=== PATIENT | female | born 1990 | race Caucasian/White ===

== ENCOUNTER 2020-01-19 12:46 | Emergency (ER) | payer MEDICAID, SELFPAY ==
[~2020-01-19] VITALS: Ht 162.6 cm; Wt 104.8 kg
[2020-01-19 12:46] VITALS: BP 145/91
--- NOTE | 2020-01-19 12:46 | NUR ---
PT LEFT OUT IN TENT FOR COVID PRECAUTIONS.
--- NOTE | 2020-01-19 12:50 | NUR ---
29/F c/o headache x2 days. Patient reports she was exposed to a family member that was positive for COVID and found out results yesterday. Patient reports she was exposed to family member for 3 days prior to finding out the exposure. Pt denies taking any medications at home for pain. VSS at this time. Pt left in [facility] tent for isolation.
--- NOTE | 2020-01-19 13:45 | NUR ---
COVID SWAB COLLECTED FROM PT
[2020-01-19 14:36] VITALS: BP 145/90
--- NOTE | 2020-01-19 14:36 | NUR ---
Patient discharged with v/s stable. Written and verbal after care instructions given and explained. Patient verbalized understanding. Ambulatory with steady gait. All questions addressed prior to discharge. Advised to follow up with PMD.
== END 2020-01-19 14:36 | disposition home or self-care (01) ==
LOC: MED 12:46 → EEVIPCON 12:46 → MED 14:36
DX: U07.1 COVID-19 (principal); M54.5 Low back pain; J45.909 Unspecified asthma, uncomplicated; D64.9 Anemia, unspecified
CPT/HCPCS: 99283; U0003